=== PATIENT | male | born 1975 | race African-American/Black ===

== ENCOUNTER 2023-11-25 17:45 | Emergency (ER) | payer OTHER ==
[~2023-11-25] VITALS: Ht 167.6 cm; Wt 64.4 kg
[2023-11-25 18:03] VITALS: TEMP 98.1
[2023-11-25 19:20] LABS: BASOPHILS # (AUTO) 0.1 (0.0-0.1); BASOPHILS % 1.2 % (0.0-1.0); EOSINOPHILS # (AUTO) 0.3 (0.0-0.4); EOSINOPHILS % 5.8 % (0.0-6.0); HEMATOCRIT 29.9 % (38.2-49.6); HEMOGLOBIN 9.4 g/dL (14.0-18.0); LYMPHOCYTES # (AUTO) 1.3 (1.0-3.2); LYMPHOCYTES % 25.7 % (18.0-39.1); MEAN CORPUSCULAR HEMOGLOBIN 28.8 pg (28-32); MEAN CORPUSCULAR HGB CONC 31.4 g/dL (31-35); MEAN CORPUSCULAR VOLUME 91.7 fL (81-99); MONOCYTES # (AUTO) 0.4 (0.2-0.8); MONOCYTES % 8.1 % (4.4-11.3); NEUTROPHILS # (AUTO) 3.1 (2.1-6.9); PLATELET COUNT 245 x10e3/uL (140-360); RED BLOOD COUNT 3.26 x10e6/uL (4.3-5.7); RED CELL DISTRIBUTION WIDTH 13.9 % (11.7-14.4); WHITE BLOOD COUNT 5.18 x10e3/uL (4.8-10.8)
[2023-11-25 19:34] LABS: ALBUMIN 3.7 g/dL (3.5-5.0); ALBUMIN/GLOBULIN RATIO 1.1 (0.8-2.0); ANION GAP 18.9 mmol/L (8-16); BILIRUBIN,TOTAL 0.3 mg/dL (0.2-1.2); CALCIUM 7.4 mg/dL (8.4-10.2); CREATININE, SERUM 9.2 mg/dL (0.72-1.25); POTASSIUM 4.9 mmol/L (3.5-5.1); TOTAL PROTEIN 7.1 g/dL (6.5-8.1)
[2023-11-25 21:34] VITALS: PULSE 83; RESP 19
[2023-11-25] MEDS ORDERED: LISINOPRIL 20 MG TAB PO ONE (21:45)
[2023-11-25] MEDS: HYDRALAZINE HCL 25 MG TAB PO ONE (21:53)
[2023-11-25 22:50] VITALS: BP 196/109; PULSE 84; RESP 17; TEMP 98.1; O2SAT 100
== END 2023-11-25 22:56 | disposition home or self-care (01) ==
LOC: ER 18:42
DX: I12.0 Hypertensive chronic kidney disease with stage 5 chronic kidney disease or end stage renal disease (principal); E11.22 Type 2 diabetes mellitus with diabetic chronic kidney disease; N18.6 End stage renal disease; E78.5 Hyperlipidemia, unspecified
CPT/HCPCS: 36415; 80053; 85025; 99283